=== PATIENT | female | born 1965 | race Caucasian/White ===

== ENCOUNTER → 2020-03-13 | Outpatient (CLI) | payer BC, OTHER ==
[~2020-03-13] MED LIST: IBUPROFEN600 MG PO; NORCO 7.5-3251 EACH PO; NORVASC10 MG PO; PERCOCET 7.5-31 EACH PO; PRINIVIL20 MG PO; SPIRONOLACTONE1 EACH PO; TOPROL XL100 MG PO
== END ==
LOC: LAB 11:41
DX: R82.998 Other abnormal findings in urine (principal)
CPT/HCPCS: 81001; 87086

== ENCOUNTER → 2020-10-15 | Outpatient (CLI) | payer BC | LOC: MAMO 07:26 | DX: Z12.31 Encounter for screening mammogram for malignant neoplasm of breast (principal) | CPT/HCPCS: 77063; 77067 ==

== ENCOUNTER → 2021-04-07 | Outpatient (CLI) | payer BC | LOC: KOH-I 16:03 | DX: J20.9 Acute bronchitis, unspecified (principal) | CPT/HCPCS: 71046 ==

== ENCOUNTER 2021-11-18 14:46 | Observation (INO) | payer BC ==
[~2021-11-18] VITALS: Ht 157.5 cm; Wt 100.7 kg
[2021-11-18 15:55] LABS: HEMOGLOBIN 16.1 gm/dl (12.3-15.3); RED BLOOD COUNT 5.14 M/UL (4.00-5.10); WHITE BLOOD COUNT 10.1 K/UL (4.5-11.0)
[2021-11-18 16:37] LABS: BUN/CREATININE RATIO 17 (0-10)
[2021-11-18] MEDS ORDERED: CATAPRES 0.1MG0.1 MG PO (20:48)
[2021-11-18] MEDS ORDERED: ESCITALOPRAM OX20 MG PO (20:48)
[2021-11-18] MEDS ORDERED: HYDROCHLOROTH12.5 MG PO (20:49)
[2021-11-18] MEDS ORDERED: LEVOCETIRIZINE D5 MG PO (20:49)
[2021-11-18] MEDS ORDERED: COZAAR 50MG TAB50 MG PO (20:50)
[2021-11-18] MEDS ORDERED: ATORVASTATIN CA10 MG PO (20:50)
[2021-11-18] MEDS ORDERED: VITAMIN D31250 MCG PO (20:51)
[2021-11-18] MEDS ORDERED: HYDROXYZINE HCL10 MG PO (20:52)
--- NOTE | 2021-11-19 02:29 | NUR ---
NOTIFIED PATIENT'S EMERGENCY CONTACT () OF PATIENT'S CHANGE IN CONDITION AND CHANGE OF LEVEL OF CARE.
--- NOTE | 2021-11-19 03:00 | NUR ---
PATIENT ARRIVED TO U 61 AT 0205 11/19/2021, FROM [facility] [address] ON A 1000[address] BOLUS. PATIENT IS ALERT AND ORIENTED X3 AND AROUSABLE. PATIENT IS IN [place] POSITION. CURRENT VITALS BP 80/44 (52), HR 66, RR 18, O2 92% 2LNC.
--- NOTE | 2021-11-19 03:32 | NUR ---
APPROX. 0135: LAB ENTERED ROOM TO DRAW LABS ON PATIENT. ORE BRIDGE OPERATOR NOTIFIES RN THAT PATIENT IS STATING THAT SHE FELT IF SHE WAS GOING TO PASS OUT. RN ENTERS ROOM AND PATIENT IS PALE, DIAPHORETIC, AND BRADYCARDIC (HEART RATE 38-40). PATIENT BECOMES UNRESPONSIVE WITH A BLANK STARE. RN UNABLE TO RE-ORIENT PATIENT. APPROX. 0136: RN CALLED RUNNER MAN. VITAL SIGNS OBTAINED. BP: 45/30. BLOOD GLUCOSE: 162. PT BRADYCARDIC. APPROX. 0138: HOUSE ALONG WITH ADDITIONAL STAFF ARRIVE. PATIENT STILL EXPERIENCING SYMTPOMATIC BRADYCARDIA. PATIENT HOOKED UP TO CRASH CART. ACLS PROTOCOL INITIATED. 1L NS BOLUS INFUSING. 20G IV INSERTED TO LEFT AC. APPROX. 0141: 0.5 MG ATROPINE ADMINISTERED IV PUSH. PULSE INCREASES TO 60'S. PATIENT BECOMES MORE RESPONSIVE. O2 SATURATION 81% ON ROOM AIR. PATIENT PLACED ON O2 @ 4L NC. O2 SATURATION RETURNED TO 92%. APPROX. 0144: EKG OBTAINED. RESULTED NORMAL SINUS RHYTHM. APPROX. 0145: BP: 87/51. APPROX. 0147: CHASSIS WIRER CALLED . APPROX. 0148: BP: 74/46. APPROX. 0151: BP: 77/45. APPROX. 0153: ARRIVED AT BEDSIDE. OBTAINED ORDERS FOR 1L BOLUS OF NORMAL SALINE, OBTAIN CARDIAC SET ONCE NOW AND REPEAT AGAIN IN 3 HOURS, HOLD PATIENT'S COREG, PLACE PATIENT IN [place] AND TO TRANSFER PATIENT TO PCU. APPROX. 0154: REPORT WAS CALLED TO PCU. CHASSIS WIRER ALONG WITH 2 ADDITIONAL RNS TRANSPORTED PATIENT TO PCU, ROOM 6113.
[2021-11-19 06:33] LABS: WHITE BLOOD COUNT 8.9 K/UL (4.5-11.0)
[2021-11-19 06:36] LABS: HEMOGLOBIN 13.9 gm/dl (12.3-15.3); RED BLOOD COUNT 4.58 M/UL (4.00-5.10)
[2021-11-19 06:56] LABS: BUN/CREATININE RATIO 22 (0-10)
[2021-11-20 02:17] LABS: RED BLOOD COUNT 4.57 M/UL (4.00-5.10); WHITE BLOOD COUNT 7.5 K/UL (4.5-11.0)
[2021-11-20 02:42] LABS: BUN/CREATININE RATIO 23 (0-10)
[2021-11-20] MEDS ORDERED: ATORVASTATIN CA20 MG PO (11:47)
[2021-11-20] MEDS ORDERED: ASPIRIN EC81 MG PO (11:47)
[2021-11-20] MEDS ORDERED: CARVEDILOL3.125 MG PO (11:47)
[2021-11-20] MEDS ORDERED: CARVEDILOL25 MG PO (11:48)
== END 2021-11-20 12:14 | disposition home or self-care (01) ==
LOC: ER1 14:46 → CDU 18:14 → MED SURG 4 19:50 → PROG CARE 11-19 01:56
PROVIDERS: Nurse Practitioner; ADMIT Internal Medicine
DX: R07.89 Other chest pain (principal); I10 Essential (primary) hypertension; I16.9 Hypertensive crisis, unspecified; R74.01 Elevation of levels of liver transaminase levels; I95.89 Other hypotension; R00.1 Bradycardia, unspecified; R01.1 Cardiac murmur, unspecified; Z79.899 Other long term (current) drug therapy
CPT/HCPCS: ECHO; 36415; 71045; 80048; 80053; 80061; 82550; 82553; 82607; 82962; 83036; 83735; 83880; 84439; 84443; 84484; 85025; 85610; 93005; 93306; 99285; G0378; J0461